=== PATIENT | female | born 1970 | race Caucasian/White ===

== ENCOUNTER 2018-05-09 09:55 | Outpatient (CLI) | payer OTHER ==
[~2018-05-09 09:55] MED LIST: NEXUM
== END 2018-05-09 10:12 | disposition home or self-care (01) ==
LOC: MRI 09:55
DX: M54.2 Cervicalgia (principal); G43.409 Hemiplegic migraine, not intractable, without status migrainosus; G44.009 Cluster headache syndrome, unspecified, not intractable

== ENCOUNTER 2019-09-04 07:33 | Outpatient (CLI) | payer OTHER | END 2019-09-04 07:38 | disposition home or self-care (01) | LOC: SONOGRAMA 07:33 → MAMO-SONO 08:15 | DX: Q44.6 Cystic disease of liver (principal) ==

== ENCOUNTER 2021-05-19 00:30 | Emergency (ER) | payer OTHER ==
[~2021-05-19] VITALS: Ht 162.6 cm; Wt 67.6 kg
[2021-05-19] MEDS ORDERED: DICLOFENAC SODI75 MG PO (01:26)
== END 2021-05-19 01:43 | disposition home or self-care (01) ==
LOC: ER 00:30
DX: M77.8 Other enthesopathies, not elsewhere classified (principal)

== ENCOUNTER 2022-09-06 11:25 | Emergency (ER) | payer OTHER ==
[~2022-09-06] VITALS: Ht 162.6 cm; Wt 73.5 kg
[~2022-09-06 11:25] MED LIST changes: +DICLOFENAC SODI75 MG PO
[2022-09-06] MEDS ORDERED: LIPITOR20 MG PO (11:39)
[2022-09-06] MEDS ORDERED: ESTRACE0.5 MG PO (11:39)
[2022-09-06] MEDS ORDERED: LEXAPRO20 MG PO (11:40)
[2022-09-06] MEDS ORDERED: CLONAZEPAM0.5 MG PO (11:40)
[2022-09-06] MEDS ORDERED: MEDROLPACK PO (15:02)
[2022-09-06] MEDS ORDERED: VALTREX1000 MG PO (15:02)
== END 2022-09-06 15:11 | disposition home or self-care (01) ==
LOC: ER 11:25
DX: G51.0 Bell's palsy (principal)